=== PATIENT | male | born 1965 | race Caucasian/White ===

== ENCOUNTER 2016-10-11 10:35 | Emergency (ER) | payer OTHER ==
[2016-10-11 12:55] VITALS: BP 115/79
--- NOTE | 2016-10-11 14:04 | UC ---
Skin Complaint HPI - HPI Summary HPI Summary: pt c/o rash on buttocks that began 2 weeks ago. Pt had similar rash 6-7 months ago and was given an antifungal and steroid cream with no improvement - History of Current Complaint Chief Complaint: UCSkin Time Seen by Provider: 10/11/16 13:39 Stated Complaint: SKIN COMPLAINT Hx Obtained From: Patient Onset/Duration: Gradual Onset, Lasting Weeks Skin Exposure Onset/Duration: Weeks Ago Timing: Constant Onset Severity: Mild Current Severity: Mild Pain Intensity: 5 Pain Scale Used: 0-10 Numeric Location: Discrete - buttocks Character: Redness Aggravating: Other - sitting for prolonged period of time Alleviating: Nothing Associated Signs & Symptoms: Positive: Rash - Allergy/Home Medications Allergies/Adverse Reactions: Allergies Allergy/AdvReac Type Severity Reaction Status Date / Time Penicillin V Allergy Intermediate Rash Verified 10/11/16 12:48 Tetanus Toxoids Allergy Intermediate Swelling Verified 10/11/16 12:48 Sulfamethoxazole Allergy Rash Verified 10/11/16 12:48 w/Trimethoprim [From Bactrim] Review of Systems Constitutional: Negative Skin: Rash Eyes: Negative ENT: Negative Respiratory: Negative Cardiovascular: Negative Gastrointestinal: Negative Genitourinary: Negative Motor: Negative Neurovascular: Negative Musculoskeletal: Negative Neurological: Negative Psychological: Negative All Other Systems Reviewed And Are Negative: Yes PMH/Surg Hx/FS Hx/Imm Hx Previously Healthy: Yes - Surgical History Surgical History: Yes Surgery Procedure, Year, and Place: hernia, appy, R ankle and R shoulder - Family History Known Family History: Positive: Cardiac Disease - Social History Occupation: Employed Full-time Lives: With Family Alcohol Use: Occasionally Substance Use Type: None Smoking Status (MU): Never Smoked Tobacco - Immunization History Most Recent Influenza Vaccination: current Physical Exam Triage Information Reviewed: Yes Appearance: Well-Appearing Vital Signs: Initial Vital Signs Temp 97.8 F 10/11/16 12:51 Pulse 82 10/11/16 12:51 Resp 16 10/11/16 12:51 BP 115/79 10/11/16 12:51 Pulse Ox 97 10/11/16 12:51 Vital Signs Reviewed: Yes Neck exam: Normal Respiratory Exam: Normal Cardiovascular Exam: Normal Musculoskeletal Exam: Normal Neurological Exam: Normal Psychological Exam: Normal Skin Exam: Other Skin: Positive: rashes - buttocks, circular reddened areas with white/silver flakes. Course/Dx - Differential Diagnoses - Skin Complaint Differential Diagnoses: Cellulitis, Contact Dermatitis, Tinea - Diagnoses Provider Diagnoses: tinea-buttocks Discharge - Discharge Plan Condition: Stable Disposition: HOME Prescriptions: Ketoconazole 2 % CREAM (NF) [Nizoral 2% CREAM (NF)] 1 applic TOPICAL Q8HR #1 tube Patient Education Materials: Skin Yeast Infection (ED) Referrals: Matthew Baker DO [Primary Care Provider] -
== END 2016-10-11 13:55 | disposition home or self-care (01) ==
LOC: UCCORT 10:35
DX: B35.4 Tinea corporis (principal); Z88.0 Allergy status to penicillin; Z88.2 Allergy status to sulfonamides; Z88.8 Allergy status to other drugs, medicaments and biological substances
CPT/HCPCS: 99212; G0463